=== PATIENT | female | born 1980 | race Caucasian/White ===

== ENCOUNTER 2022-02-26 18:24 | Emergency (ER) | payer OTHER, MEDICAID, SELFPAY ==
[2022-02-26 18:34] VITALS: BP 122/71; PULSE 87; RESP 16; TEMP 36.6; O2SAT 100; BMI 25.8
--- NOTE | 2022-02-26 21:14 | ED_ITS ---
HPI - Female Genitourinary <MARIA LUZ Sanchez - Last Filed: 02/26/22 21:38> General Chief complaint: Urogenital-Female Stated complaint: UTI Time Seen by Provider: 02/26/22 20:39 Source: patient Mode of arrival: Ambulatory History of Present Illness HPI Narrative: This is a 41-year-old female presents to the emergency department for burning pain when patient urinates, pain with wiping, vaginal itching, abnormal vaginal discharge since she was treated for hepatitis C with multiple medications. Patient states that she think she has a yeast infection or may be bacterial vaginosis. Patient denies any flank pain, states her urine has a foul odor, denies any nausea, vomiting, chills or other pain. Patient states she was not sure how to use the [id number] use medications so she came here. Related Data Allergies Allergy/AdvReac Type Severity Reaction Status Date / Time No Known Drug Allergies Allergy Verified 02/26/22 18:37 Review of Systems <MARIA LUZ Sanchez - Last Filed: 02/26/22 21:38> Review of Systems Narrative: General: denies fever, chills, malaise, sweats, fatigue Head/Neck: denies headache, neck pain, dizziness Eyes: denies visual changes, eye pain Cardio: denies chest pain, palpitations, edema Respiratory: denies dyspnea, cough, orthopnea GI: denies abdominal pain, nausea, vomiting, or diarrhea : denies hematuria, urinary retention, frequency or incontinence, patient states that she has vulvar pain with wiping, vaginal itching, and the quite abnormal vaginal discharge. MSK: denies joint pain, muscle weakness Skin: denies rash, itching, skin lesions or other Neuro: denies numbness, tingling Patient History <MARIA LUZ Sanchez Last Filed: 02/26/22 21:38> alcohol intake frequency: holidays/special occasions only Substance Use Type: does not use Exam <MARIA LUZ Sanchez Last Filed: 02/26/22 21:38> Narrative Exam Narrative: Independently reviewed vitals signs and nursing notes. General: cooperative, comfortable, in no acute distress, well developed and well groomed Head: atraumatic, symmetrical facial expressions Neck: supple, atraumatic, without lymphadenopathy. Eyes: pupils equal round and reactive, EOMI, conjunctiva normal Nose: nares patent, no rhinorrhea Mouth/Throat: uvula midline, moist mucus membranes Cardiovascular: regular rate and rhythm, no peripheral edema, warm extremities Respiratory: normal effort, able to speak in complete sentences, no audible wheezing, stridor, or rales. No retractions or tachypnea. GI: abdomen soft, nontender to palpation, nondistended, no masses, no exquisite tenderness with exam, without guarding or rebound. MSK: moves all extremities, ambulatory w/steady gait, neurovascularly intact, no weakness Skin: brisk capillary refill, no rash, no erythema Neuro: normal speech and cognition, A&O x3, normal tone Psych: mental status is grossly normal, congruent mood, normal affect, pleasant and cooperative Initial Vital Signs Initial Vital Signs: Vital Signs Temperature 97.9 F 02/26/22 18:34 Pulse Rate 87 02/26/22 18:34 Respiratory Rate 16 02/26/22 18:34 Blood Pressure 122/71 02/26/22 18:34 Pulse Oximetry 100 02/26/22 18:34 <Henny Britt DO - Last Filed: 02/27/22 06:24> Initial Vital Signs Initial Vital Signs: Vital Signs Temperature 97.9 F 02/26/22 18:34 Pulse Rate 87 02/26/22 18:34 Respiratory Rate 16 02/26/22 18:34 Blood Pressure 122/71 02/26/22 18:34 Pulse Oximetry 100 02/26/22 18:34 Course <MARIA LUZ Sanchez - Last Filed: 02/26/22 21:38> Orders Ordered: ED Orders 02/26/22 20:56 Wet Prep Tric BV Lori Stat 02/26/22 21:01 Urine Culture Stat Urine Microscopic Stat Vital Signs Vital signs: Vital Signs - 8 hr 02/26/22 18:34 Temperature 97.9 F Pulse Rate 87 Respiratory Rate 16 Blood Pressure 122/71 Pulse Oximetry 100 <Henny Britt DO - Last Filed: 02/27/22 06:24> Orders Ordered: ED Orders 02/26/22 20:56 Wet Prep Tric BV Lori Stat 02/26/22 21:01 Urine Culture Stat Urine Microscopic Stat Vital Signs Vital signs: Vital Signs - 8 hr 02/26/22 18:34 Temperature 97.9 F Pulse Rate 87 Respiratory Rate 16 Blood Pressure 122/71 Pulse Oximetry 100 MDM - Female Genitourinary <MARIA LUZ Sanchez - Last Filed: 02/26/22 21:38> Lab Data Labs: Lab Results 02/26/22 Range/Units 21:01 Urine RBC 0-1/hpf (0-5/HPF) Urine WBC 1-5/hpf (0-5/HPF) Ur Squamous Epith Cells 1-5 /hpf (0-5/HPF) Calcium Oxalate Crystal Few H Urine Bacteria None seen (None) Urine Mucus 2+ H (Negative) Ur Culture Indicated? Culture not indicate Point of Care Testing Test Results Negative Urine Dip Bedside Urine Glucose Negative Bedside Urine Bilirubin - Negative Bedside Urine Ketone - Negative Urine Specific [place] 1.030 Bedside Urine Occult Blood - Negative Bedside Urine pH 6.0 Bedside Urine Protein + 30 Bedside Urine Urobilinogen - Negative Bedside Urine Nitrite - Negative Bedside Urine Leukocytes - Negative Esterase [facility] Narrative Medical decision making narrative: This is a 41-year-old female presents to the emergency department complaining of vaginal pain with wiping, dysuria when her urine meets her vulva/urethral opening, vaginal itching, an abnormal vaginal discharge. Patient did not want to have any lab work completed as she states she was recently treated for hepatitis, had lab work done yesterday, and has left a follow-up appointment in 3 days. She is a patient of [facility]. She thought she might have a yeast infection or bacterial vaginosis, a wet mount was obtained, was negative for Trichomonas, yeast, or BV. UA shows no white blood cells, red blood cells, bacteria or nitrates, few calcium oxalate crystals with 2+ urine mucus. Culture was ordered although not indicated. This could be a kidney stone, bladder stone, or other stone related to her medications for her hepatitis, but patient did not want to have any lab work, did not want to stay for any additional testing or imaging. Patient is encouraged to return for any worsening of her symptoms, follow up with her provider at [facility], and to rest, stay hydrated, and use topical Vaseline or topical antifungals if she has vulvar excoriation. No peritoneal signs on abdominal exam. Patient remains p.o. tolerant. Serial abdominal exam without increase in abdominal pain. Given history and exam, low suspicion for acute abdominal process, such as acute cholecystitis, pancreatitis, perforated viscus, atypical appendicitis, colitis, diverticulitis or torsion. Extensive conversation about ER return precautions and need for close follow-up. Patient is appropriate and amenable to discharge home. Vital signs are stable on repeat examination is unremarkable. Patient has been informed of results. Patient has been given strict return to ER precautions for any new or worsening symptoms. Patient understands to follow up closely with outpatient providers as instructed. Patient understands plan and agrees to discharge home. All questions and concerns answered at this time. <Henny Britt, - Last Filed: 02/27/22 06:24> Lab Data Labs: Lab Results 02/26/22 Range/Units 21:01 Urine RBC 0-1/hpf (0-5/HPF) Urine WBC 1-5/hpf (0-5/HPF) Ur Squamous Epith Cells 1-5 /hpf (0-5/HPF) Calcium Oxalate Crystal Few H Urine Bacteria None seen (None) Urine Mucus 2+ H (Negative) Ur Culture Indicated? Culture not indicate Point of Care Testing Test Results Negative Urine Dip Bedside Urine Glucose Negative Bedside Urine Bilirubin - Negative Bedside Urine Ketone - Negative Urine Specific [place] 1.030 Bedside Urine Occult Blood - Negative Bedside Urine pH 6.0 Bedside Urine Protein + 30 Bedside Urine Urobilinogen - Negative Bedside Urine Nitrite - Negative Bedside Urine Leukocytes - Negative Esterase Discharge Plan Departure Patient Disposition: Home Clinical Impression: Urinary tract pain Instructions: DI for Dysuria -- Adult, Clotrimazole (Into the vagina), Miconazole (Into the vagina) Activity Restrictions/Additional Instructions: Your urine does not show any blood, white blood cells, bacteria in it today, your vaginal secretions did not have any yeast, Trichomonas, or bacterial vaginosis. This is good news, please continue staying hydrated, we will call you if your urine culture grows any abnormal bacteria and we will put you on an antibiotic at that point. If you are interested in any of the [id number] yeast medications, I put some instructions above, these can be helpful on the labia if you are having itching and sensitivity. Please follow-up with your regular doctor, I am sorry that the wait was so long, I hope that you feel better soon, please return tomorrow if you are having ongoing symptoms. *What to do: *Please continue to take your regular medications as directed. [ ] New medication prescriptions sent to your pharmacy: [ ] [ ] New medication written as a paper prescription [x ] No new medications given *Please follow up with your primary care provider in 2-3 days, call for an appointment. Let them know you were seen in the Emergency Department and that we asked that you be seen for follow-up. We will electronically transmit a record of today's note if your PCP is in our system *If you do not have a primary care provider please contact [phone] to establish care with one of [facility] primary care providers. *Return to Emergency Department if you should have any new, worsening or concerning symptoms, such as [fever greater than 101F, chills, worsening pain, persistent vomiting or other bothersome symptoms] <Henny Britt, DO - Last Filed: 02/27/22 06:24> Cosign ED Attending Jenn Attestation: I was immediately available in the department for consultation. Documentation has been reviewed.
--- NOTE | 2022-02-26 21:31 | PC.NURSE ---
ASSESSED, TREATED, AND DC'D BY ISSA GREENWOOD NP WITHOUT RN INVOLVMENT. SEE PROVIDER NOTE
[2022-02-26 21:33] LABS: Bacteria Urine None Seen; Calcium Oxalate Crystals Urine Few; Mucus Urine 2+ (Negative); RBC Urine 0-1/HPF (0-5/HPF); Squamous Epithelial Cell Urine 1-5 /HPF (0-5/HPF); WBC Urine 1-5/HPF (0-5/HPF)
== END 2022-02-26 21:32 | disposition home or self-care (01) ==
PROVIDERS: Emergency Provider Nurse Practitioner Critical Care Medicine
DX: N23 Unspecified renal colic (principal); R30.0 Dysuria
CPT/HCPCS: 81003; 81015; 81025; 87086; 87210; 99282

== ENCOUNTER → 2025-04-06 13:56 | Outpatient (CLI) | payer OTHER, SELFPAY ==
--- NOTE | 2025-04-06 14:14 | DI.MRI.S_ITS ---
PROCEDURE: MR ANGIO HEAD WO CON INDICATIONS: family hx aneurysm TECHNIQUE: Noncontrast axial 3-D [id number] MR angiogram, with 3-dimensional maximum intensity projection (MIP) reformats of the internal carotid arteries and posterior circulation then performed. COMPARISON: None. FINDINGS: Image quality: Excellent. Anterior circulation: Intracranial internal carotid arteries are normal in size and flow. There is a diminutive right A1 segment, with a corresponding robust left A1 segment. This is considered to be a normal developmental variant of the [place] of [place], of typically no clinical consequence. The flow within the paired anterior cerebral arteries is otherwise normal and symmetric. The flow within the middle cerebral arteries is normal and symmetric. The anterior communicating artery is seen. No aneurysms are seen. Posterior circulation: Visualized portions of the vertebral arteries demonstrate normal caliber, and join to form a normal appearing basilar artery. There is a prominent right posterior communicating artery seen, with an accompanying diminutive right P1 segment. This is attributed to a type origin of the right posterior cerebral artery, which is considered to be a normal developmental variant of typically no clinical consequence. The flow within the posterior cerebral arteries is normal and symmetric. No aneurysms are seen. IMPRESSION: No aneurysm is seen. 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 Dictated by: Gerardo Rizvi M.D. on 04/07/2025 at 11:36 Approved by: Gerardo Rizvi M.D. on 04/07/2025 at 11:37
== END ==
PROVIDERS: PCP Family Medicine; Referring Provider Family Medicine; Visit Provider Family Medicine
DX: Q28.3 Other malformations of cerebral vessels (principal); Z82.49 Family history of ischemic heart disease and other diseases of the circulatory system
CPT/HCPCS: 70544

== ENCOUNTER → 2025-04-13 07:29 | Outpatient (CLI) | payer OTHER, SELFPAY ==
--- NOTE | 2025-04-13 07:31 | DI.US.S_ITS ---
PROCEDURE: US EXTREMITY NONVASC LOWER RT INDICATIONS: PALPABLE RIGHT PROX THIGH/INFERIOR TO INGUINAL AREA ?HERNIA TECHNIQUE: Real-time scanning was performed of the right inguinal region, with image documentation. COMPARISON: None. FINDINGS: A prominent anterior accessory saphenous vein is seen corresponding the palpable abnormality measuring up to 7 mm in anterior-posterior dimension. There is approximately 3.1 second reflux at the junction of the AASV and greater saphenous vein. No superficial or deep thrombus is seen at the area of concern. No inguinal hernia identified. IMPRESSION: A dilated anterior accessory saphenous vein corresponds to the patient-indicated palpable area of concern. Associated venous reflux is noted. No superficial or deep venous thrombus at the area of concern. No inguinal hernia is seen. Approved by: Chaz Crow M.D. on 04/13/2025 at 14:19
== END ==
LOC: US 07:30
PROVIDERS: PCP Family Medicine; Referring Provider Family Medicine; Visit Provider Family Medicine
DX: K46.9 Unspecified abdominal hernia without obstruction or gangrene (principal); I87.2 Venous insufficiency (chronic) (peripheral)
CPT/HCPCS: 76705; 76882